=== PATIENT | male | born 1930 | race African-American/Black ===

== ENCOUNTER 2017-07-08 17:18 | Inpatient (IN) | payer OTHER, BC ==
--- NOTE | 2017-07-08 17:18 | EDPHY ---
H & P HPI/ROS: CHIEF COMPLAINT: Rectal bleeding HISTORY OF PRESENT ILLNESS: 86-year-old male with prior pulmonary embolism, on Coumadin, presents with rectal bleeding. Onset of rectal bleeding yesterday. Multiple episodes of dark loose stool yesterday. Associated with 1 episode of hematemesis today and dizziness. No abdominal pain or syncopal episode. He has been taking Aleve daily for a few months. Denies prior GI bleed, abdominal pain, chest pain, abnormal shortness of breath or other worsening symptoms. REVIEW OF SYSTEMS: Aside from elements discussed in the HPI, a comprehensive 10-point review of systems was reviewed and is negative. Past Medical/Surgical History: Pulmonary embolism, right lower extremity DVT, hypertension Social History: Family at bedside, lives in [place], retired. Physical Exam: General Appearance: Alert, pleasant and talkative Eyes: Pupils equal and round, conjunctival pallor ENT, Mouth: Mucous membranes moist Neck: Normal inspection Respiratory: Lungs are clear to auscultation anteriorly Cardiovascular: Regular rate and rhythm Gastrointestinal: Abdomen is soft and non-tender Rectal: Melena present Neurological: A&O, nonfocal exam Skin: Warm and dry Extremities: Nontender, no pedal edema Psychiatric: Mood and affect normal Constitutional: Initial Vital Signs Heart Rate 92 07/08/17 17:18 Respiratory Rate 16 07/08/17 17:18 Blood Pressure 86/55 L 07/08/17 17:18 O2 Sat (%) 88 L 07/08/17 17:18 O2 Delivery Mode Room Air O2 (L/minute) 2 Allergies/Adverse Reactions: No Known Allergies Allergy (Verified 08/19/12 16:14) Home Medications: Medication Instructions Recorded Pravastatin Sodium 20 mg PO DAILY 08/19/12 Quinapril HCl [Accupril 40 MG] 40 mg PO BID 08/19/12 Sildenafil Citrate [Viagra 50 MG 100 mg PO PRN PRN 08/19/12 (*)] Warfarin Sodium [Coumadin 5MG (*)] 5 mg PO DAILY16 #30 tab 08/22/12 Latanoprost 0.005% [Xalatan 0.005% 0 drops EACHEYE HS 07/08/17 (*)] Naproxen Sodium [Aleve 220 MG (*)] 220 mg PO BID 07/08/17 Medical Decision Making - Diagnostics EKG Interpretation: EKG interpreted by me reveals normal sinus rhythm with rate of 89, LVH, prolonged QT interval. Interpretation: Abnormal EKG Imaging: I viewed and interpreted images myself ED Course/Re-evaluation: The patient is an anticoagulated 86 y/o male arriving via EMS who presents with an upper GI bleed. On exam he is hypotensive and he has melena. IV NS 1 liter given. Protonix 80 mg IV given. Stat hemoglobin 8.7, INR 4.6. Vitamin K 10 mg IV and Kcentra IV given. The patient was type and screened. 1842: Reassessed patient and discussed plan for admission 1844: Consulted with hospitalist service, Dr. Peña accepts admission of this patient. 1848: Consulted with Dr. Gasca, gastroenterology, she will consult with this patient upon admission. 1899: Patient's blood pressure is 77/46. IV normal saline infusing. I reassessed the patient; his mental status is at baseline and he is not feeling dizzy. Repeat I-STAT hematocrit 23. Blood bank was called and the blood will not be ready for 30-40 minutes. Given ongoing serious upper GI bleed and hemodynamic instability, 1 unit packed red blood cells ordered, O negative. Dr. Peña was informed. Once crossmatch blood is available, the patient will likely need another unit of crossmatched blood. Repeat BP 80/60, PRBC infusing. Differential Diagnosis: Differential diagnosis includes though is not limited to esophageal varices, peptic ulcer disease, AVM, diverticular bleed Critical Care Time: I spent a total of 45 minutes of critical care time in obtaining history, performing a physical exam, bedside monitoring of interventions, collecting and interpreting tests and discussion with consultants but not including time spent performing procedures. - Data Points Laboratory Results: Laboratory Results 07/08/17 17:50 07/08/17 17:50 07/08/17 18:15 Patient ABO/Rh O POSITIVE Antibody Screen NEGATIVE Crossmatch IS Only See Detail Medications Given: Sodium Chloride (Ns) 1,000 mls @ 100 mls/hr IV CONT CHANG Stop: 01/04/18 21:14 Last Admin: 07/11/17 00:21 Dose: 1,000 mls Pantoprazole Sodium 40 mg/ (Sodium Chloride) 100 mls @ 200 mls/hr IV BID CHANG Stop: 01/05/18 08:59 Last Admin: 07/10/17 20:23 Dose: 100 mls Latanoprost (Xalatan 0.005%) 1 drops EACHEYE HS [facility] Stop: 01/04/18 20:59 Last Admin: 07/10/17 20:23 Dose: 1 drop Tamsulosin HCl (Flomax) 0.4 mg PO DAILY CHANG Stop: 01/06/18 08:59 Last Admin: 07/10/17 10:59 Dose: 0.4 mg Discontinued Medications Brimonidine Tartrate (Alphagan P 0.15%) 1 drops OP DAILY CHANG Stop: 01/05/18 08:59 Last Admin: 07/09/17 12:39 Dose: Not Given Brimonidine Tartrate (Alphagan P 0.15%) 1 drops OP DAILY CHANG Stop: 01/05/18 10:14 Last Admin: 07/09/17 12:39 Dose: Not Given Sodium Chloride (Ns) 1,000 mls @ 0 mls/hr IV EDNOW ONE; Wide Open PRN Reason: Protocol Stop: 07/08/17 17:23 Last Admin: 07/08/17 18:24 Dose: 1,000 mls Pantoprazole Sodium 80 mg/ (Sodium Chloride) 100 mls @ 200 mls/hr IV EDNOW ONE Stop: 07/08/17 18:05 Last Admin: 07/08/17 18:25 Dose: 100 mls Phytonadione 10 mg/ Sodium (Chloride) 51 mls @ 102 mls/hr IV ONCE ONE Stop: 07/08/17 19:05 Last Admin: 07/08/17 18:57 Dose: 51 mls Prothrombin Complex Concent ( Human) 2,400 unit/ IV Miscellaneous Supplies 96 mls @ 0 mls/hr IV ONCE ONE; Per Protocol PRN Reason: Protocol Stop: 07/08/17 19:01 Last Admin: 07/08/17 21:00 Dose: 96 mls Departure - Departure Disposition: [facility] Inpatient Acute Clinical Impression: Upper GI bleed, Over-anticoagulated Condition: Serious Report Scribed for: Toshia Patel Report Scribed by: Harriett Mcgraw Date of Report: 07/08/17 Time of Report: 17:17 Physician Review and Approval Statement: 07/08/17 17:17 Portions of this note were transcribed by a medical collections specialist. I personally performed a history, physical exam, medical decision making, and confirmed accuracy of information the transcribed note.
[2017-07-08] MEDS ORDERED: NS 1,000 ML IV ONE (17:22)
[2017-07-08] MEDS ORDERED: PANTOPRAZOLE SODIUM 80 MG in NS 100 ML IV ONE (17:36)
--- NOTE | 2017-07-08 18:00 | CPEKG ---
Heart Rate: 89 RR Interval: 674 P-R Interval: 164 QRSD Interval: 82 QT Interval: 424 QTC Interval: 516 P [place]: 50 QRS [place]: 30 T Wave [place]: 14 EKG Severity - ABNORMAL ECG - EKG Impression: SINUS RHYTHM EKG Impression: LEFT VENTRICULAR HYPERTROPHY EKG Impression: PROLONGED QT INTERVAL Electronically Signed By: Toshia Patel 08-Jul-2017 21:19:31
[2017-07-08 18:01] LABS: % IMMATURE GRANULYOCYTES 0.4 % (0.0-1.1); ABSOLUTE IMMATURE GRANULOCYTES 0.05 10^3/uL (0.00-0.10); ABSOLUTE NRBC COUNT 0.02 10^3/uL (0-0.01); ADD DIFF? NO; ADD MORPH? NO; ADD SCAN? YES; ATYPICAL LYMPHOCYTE FLAG 0 (0-99); FRAGMENT RBC FLAG 0 (0-99); HEMATOCRIT 26.8 % (40.0-51.0); HEMOGLOBIN 8.6 g/dL (13.7-17.5); LIPEMIA HEMOLYSIS FLAG 80 (0-99); MEAN CELL HEMOGLOBIN 27.7 pg (27.9-34.1); MEAN CELL HEMOGLOBIN CONCENTR. 32.1 g/dL (32.4-36.7); MEAN CELL VOLUME 86.2 fL (81.5-99.8); MEAN PLATELET VOLUME 11.8 fL (8.7-11.7); NRBC-AUTO% 0.2 % (0.0-0.2); PLATELET CLUMPS FLAG 80 (0-99); PLATELET COUNT 97 10^3/uL (150-400); RED BLOOD CELL COUNT 3.11 10^6/uL (4.40-6.38); RED CELL DISTRIBUTION WIDTH 16.4 % (11.5-15.2)
[2017-07-08 18:12] LABS: LEFT SHIFT FLG 180 (0-99)
[2017-07-08 18:14] LABS: INR 4.66 (0.83-1.16); PROTIME(PATIENT) 44.9 SEC (12.0-15.0)
[2017-07-08 18:15] LABS: APTT 44.7 SEC (23.0-38.0)
[2017-07-08 18:32] LABS: SCAN POSITIVE
[2017-07-08] MEDS ORDERED: PHYTONADIONE 10 MG in NS 50 ML IV ONE (18:36)
[2017-07-08 18:38] LABS: MACROCYTES 1+; MICROCYTES 1+
[2017-07-08 18:39] LABS: ECHINOCYTES 2+; PLATELET ESTIMATE DECREASED (ADEQ)
[2017-07-08] MEDS ORDERED: *PHM DO NOT USE-KCENTRA IV 35 UNITS/KG (INR 4-6) PTD MISC SCH (18:45)
[2017-07-08 18:52] LABS: ANION GAP 18 mEq/L (8-16); CALCIUM 8.6 mg/dL (8.5-10.4); CARBON DIOXIDE 13 mEq/l (22-31); CHLORIDE 111 mEq/L (97-110); CREATININE 1.7 mg/dL (0.7-1.3); GLOMERULAR FILTRATION RATE 38; GLUCOSE 119 mg/dL (70-100); POTASSIUM 3.7 mEq/L (3.5-5.2); SODIUM 142 mEq/L (134-144)
[2017-07-08] MEDS ORDERED: HUMAN PROTHROMBIN COMPLX IV ONE (19:00)
[2017-07-08] MEDS ORDERED: ONDANSETRON 4 MG/2 ML VIAL IVP PRN (20:57)
[2017-07-08] MEDS ORDERED: ONDANSETRON DISINTEGRATING 4 MG TAB PO PRN (20:57)
[2017-07-08] MEDS ORDERED: ACETAMINOPHEN 325 MG TAB PO PRN (20:57)
[2017-07-08] MEDS ORDERED: D5W 1/2 NS W/ 20 KCl/L 1,000 ML IV SCH (21:00)
--- NOTE | 2017-07-08 21:21 | GCON ---
[f rep st] CONSULTATION DATE OF CONSULTATION: 07/08/2017 CHIEF COMPLAINT: GI bleed. I am asked to see this patient in consultation by Dr. Peña for the chief complaint of GI bleed. HISTORY OF PRESENT ILLNESS: The patient is an 86-year-old who has been on long-term Coumadin for DVT and PE approximately 3 years ago. He was in his usual state of health until yesterday when he start ed passing dark black stools with some clots. This morning, he had an episode of hematemesis and was brought to the emergency room. He has never had history of GI bleeding or peptic ulcer disease. He does have some epigastric pain. He also admits to having GERD symptoms approximately 2 or 3 times p er week, but no dysphagia. States he does not take any medication for his GERD symptoms. Never had any peptic ulcer disease or bleeding, but had started Naprosyn, which he has been taking daily for th e past 2-3 months. The patient does drink alcohol, a glass or 2 of wine every night. States he has never had issues with liver disease. ALLERGIES: No reported drug allergies. MEDICATIONS: Aleve, taking twice daily; warfarin; Viagra; quinapril; pravastatin. PAST MEDICAL HISTORY: Notable for hypertension, hypercholesterolemia, mitral valve regurg, pulmonary embolism on chronic Coumadin. FAMILY HISTORY: No family history for ulcers or liver disease. SOCIAL HISTORY: Does drink alcohol daily. REVIEW OF SYSTEMS: I have performed a complete review of systems, which was negative except for the pertinent positives and negatives noted in the HPI. PHYSICAL EXAMINATION: VITAL SIGNS: He is afebrile. BP is 86/55, pulse 92. CONSTITUTIONAL: He is alert, in no apparent distress. EYES: No scleral icterus. HENT: No oral lesions. CV: Regular ra te and rhythm. CHEST: Clear to auscultation. ABDOMEN: Positive bowel sounds. Soft, nontender. N o ascites detected. No hepatosplenomegaly. There is some tenderness noted to deep palpation in the epigastric area. NEUROLOGIC: Grossly nonfocal. SKIN: No skin rashes. LABORATORY DATA: Notable for a BUN of 67, with creatinine 1.2. Hematocrit is 26.8, with hemoglobin 8.6, platelets 97, white count 11. Previous hematocrit was normal. Pro time is elevated at 41.9, wi th an INR of 4.66. ASSESSMENT: Acute upper gastrointestinal bleed manifested with hematemesis, melena, and elevated BUN . This is complicated by Coumadin use with high INR. Differential diagnosis would include nonsteroi zofia antiinflammatory drug-induced ulcer, which is most likely, but also consider esophagitis or Mallo ry-Unger tear. Consider arteriovenous malformation, etc. The patient would benefit from upper endos copy; however at this point, he will need resuscitation and correction of his coagulation before uppe r endoscopy can be performed. I did discuss this with the patient. Overall, he would be high risk f or endoscopy because of his age and anticoagulation, but I think that the benefits would outweigh the risks once his anticoagulation is corrected and could be done safely with careful sedation. PLAN: 1. Agree with vitamin K, and prothrombin complex to correct his coagulopathy, and can recheck his pr o time. 2. Would recommend transfusion with packed red cells and then check H and H after, and then monitor serial H and H. Recommend PPI IV and upper endoscopy once stabilized and coagulopathy is corrected. Will monitor. Thank you for this consult. Sincerely, /[id number]/MODL
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
[2017-07-08 22:19] LABS: HEMATOCRIT 25.6 % (40.0-51.0); HEMOGLOBIN 8.3 g/dL (13.7-17.5)
[2017-07-08] MEDS: LATANOPROST 0.005% 2.5 ML OPHT DROPS EACHEYE SCH (22:42)
[2017-07-09 05:27] LABS: HEMATOCRIT 22.6 % (40.0-51.0); HEMOGLOBIN 7.7 g/dL (13.7-17.5)
[2017-07-09 05:35] LABS: ALANINE AMINOTRANSFERASE 27 IU/L (21-72); ALBUMIN 2.4 g/dL (3.5-5.0); ALKALINE PHOSPHATASE 40 IU/L (38-126); ANION GAP 7 mEq/L (8-16); ASPARTATE AMINOTRANSFERASE 31 IU/L (17-59); BILIRUBIN,TOTAL 1.4 mg/dL (0.1-1.4); CALCIUM 8.2 mg/dL (8.5-10.4); CARBON DIOXIDE 21 mEq/l (22-31); CHLORIDE 112 mEq/L (97-110); CREATININE 1.9 mg/dL (0.7-1.3); GLOMERULAR FILTRATION RATE 34; GLUCOSE 99 mg/dL (70-100); SODIUM 140 mEq/L (134-144); TOTAL PROTEIN 4.7 g/dL (6.3-8.2)
[2017-07-09 05:36] LABS: INR 1.17 (0.83-1.16); PROTIME(PATIENT) 14.9 SEC (12.0-15.0)
--- NOTE | 2017-07-09 08:38 | PDANEPAE ---
ANE History of Present Illness 86 year old male on Coumadin, chronic alcohol consumption, and recent use of Aleve presented with an upper GI bleed. ANE Past Medical History - Cardiovascular History Hx Hypertension: Yes Cardiovascular History Comment: hypercholesterolemia. MV regurgitation. h/o DVT/PE 3 years ago, on chronic Coumadin since that time - Pulmonary History Hx Recent Upper Respiratory Infection: No Hx Oxygen in Use at Home: No Hx Sleep Apnea: No Pulmonary History Comment: Normally active around the house and outside. Requiring O2 during this admission, probably secondary to anemia and some underlying pulmonary disease. - Endocrine History Hx Diabetes: No - Renal History Hx Renal Disorders: Yes Renal History Comment: Baseline Cr 1.3-1.4. Acutely has elevated Cr, perhaps partially due to hypovolemia. - Liver History Hepatic History Comment: Low albumin probably secondary to chronic EtOh use/ poor nutrition. - GI History GERD: moderate Gastrointestinal History Comment: Reports GERD symtoms 2-3 x/week. - Other Health History Other Health History: Chronic EtOH use. Pt reports 2 glasses of wine nightly, says he drinks beer in the afternoon in addition to the wine at night. ANE Review of Systems Review of Systems: - Systems Respiratory: Reports: cough (chronic dry cough), other (hypoxemia) Gastrointestinal: Reports: black stools Hematologic/Lymphatic: Reports: anemia ANE Patient History - Allergies Allergies/Adverse Reactions: No Known Allergies Allergy (Verified 08/19/12 16:14) - Home Medications Home medications: home medication list seen and reviewed Home Medications: Pravastatin Sodium 20 mg PO DAILY 08/19/12 [Last Taken 07/08/17] Quinapril HCl [Accupril 40 MG] 40 mg PO BID 08/19/12 [Last Taken 07/08/17] Sildenafil Citrate [Viagra 50 MG (*)] 100 mg PO PRN PRN 08/19/12 [Last Taken Unknown] Brimonidine 0.15% 1 drop OP 07/08/17 [Last Taken Unknown] Latanoprost 0.005% [Xalatan 0.005% (*)] 0 drops EACHEYE 07/08/17 [Last Taken Unknown] Naproxen Sodium [Aleve 220 MG (*)] 220 mg PO BID 07/08/17 [Last Taken 07/08/17] - NPO status NPO Status: no food or drink >8 hours - Anes Hx Anes Hx: no prior problems - Smoking Hx Smoking Status: Former smoker Marijuana use: No - Alcohol Use Alcohol Use: Heavy (6+ drinks/day per (pt denies, only admits to 2 daily)) - Family Anes Hx Family Anes Hx: none ANE Labs/Vital Signs - Labs Result Diagrams: 07/09/17 05:05 07/09/17 05:05 - Vital Signs Blood Pressure: 92/60 Heart Rate: 87 Respiratory Rate: 17 O2 Sat (%): 100 Height: 177.8 cm Weight: 70.7 kg ANE Physical Exam - Airway Neck exam: FROM Mallampati Score: Class 3 Mouth exam: dentures - Pulmonary Pulmonary: no respiratory distress - Cardiovascular Cardiovascular: regular rate and rhythym - ASA Status ASA Status: III ANE Anesthesia Plan Anesthesia Plan: GA with mask Total IV Anesthesia: Yes
[2017-07-09] MEDS ORDERED: fentaNYL 100 MCG/2 ML INJ ONE (08:57)
[2017-07-09] MEDS ORDERED: LIDOCAINE 2% 5 ML SDV ONE (08:57)
[2017-07-09] MEDS ORDERED: PROPOFOL 200 MG/20 ML VIAL ONE ×2 (08:57)
[2017-07-09] MEDS ORDERED: BRIMONIDINE 0.15% 5 ML OPHT.BTL OP SCH ×3 (09:00→21:00)
[2017-07-09] MEDS ORDERED: PHENYLEPHRINE HCL 100 MCG/ML SYR ONE ×2 (09:38)
--- NOTE | 2017-07-09 09:47 | GIREPORT ---
[facility] Surgical Services - Endoscopy Department Patient Name: Kavin Lew Procedure Date: 07/09/2017 8:44 AM Patient Type: Inpatient Attending / ER Physician: Linda Gasca MD Procedure: Upper GI endoscopy Indications: Melena, Suspected upper gastrointestinal bleeding Providers: Linda Gasca MD Medicines: Monitored Anesthesia Care Complications: No immediate complications. Description of Procedure: After obtaining informed consent, the endoscope was passed under direct vision. Throughout the procedure, the patient's blood pressure, pulse, and oxygen saturations were monitored continuously. The Endoscope was intro duced through the mouth, and advanced to the second part of duodenum. [facility] was accomplished without difficulty. The patient tolerated th e procedure well. Findings: LA Grade B (one or more mucosal breaks greater than 5 mm, not extending between the tops of two mucosal folds) esophagitis with no bleeding was found in the lower third of the esophagus. A single localized, medium non-bleeding erosion was found at the pylorus. There were no stigmata of recent bleeding. The examined duodenum was normal. A medium non-bleeding Mei-Unger tear with stigmata of recent bleeding was found with large v iss vessel. To prevent bleeding post-intervention, three hemostatic clips were successfully placed. There was no bleeding at the end of the procedure. Erythematous mucosa was found in the gastric body laceration occured when rertoflexion to place 3 clip at [facility]. There was nobleeding but to repair the defect, the tissue edges were approximated and one hemostatic clip was successfully placed. Closure of the defect was successf ul. There was no bleeding at the end of the procedure. Estimated Blood Loss: Estimated blood loss was minimal. Post Op Diagnosis: - LA Grade B reflux esophagitis. - Non-bleeding erosive gastropathy. - Normal examined duodenum. - Mei-Unger tear. Clips were placed. - Erythematous mucosa in the gastric body with laceration. Clip was placed. - No specimens collected. Recommendation: - NPO. - Continue present medications. - Return patient to ICU for ongoing care. - Montior closely for rebleeding given size of vissible vessel. If rebleeding recommend IR for embolization. - No anticoagulation for 3 days. - Continue PPI IV. Attending Participation: I personally performed the entire procedure. Linda Gasca MD Linda Gasca MD 07/09/2017 9:46:53 AM Number of Addenda: 0 Note Initiated On: 07/09/2017 8:44 AM Total Procedure Duration Time 0 hours 10 minutes 41 seconds [email or web address]
[2017-07-09] MEDS ORDERED: NALOXONE HCL 0.4 MG/ML INJ IVP PRN (12:31)
[2017-07-09] MEDS ORDERED: ALBUTEROL 3 ML DEYVIAL IH PRN (12:31)
[2017-07-09] MEDS ORDERED: LR 500 ML IV PRN (12:31)
--- NOTE | 2017-07-09 12:34 | POSTANESTH ---
Post Anesthetic Evaluation Cardiovascular Status: Normal, Stable Respiratory Status: Normal, Stable Level of Consciousness/Mental Status: Moderately Sleepy Pain Control: Adequate, Prn Tx Ordered Nausea/Vomiting Control: Adequate, Prn Tx Ordered Complications Possibly Related to Anesthesia: None Noted
[2017-07-09] MEDS: PANTOPRAZOLE SODIUM 40 MG in NS 100 ML IV SCH ×3 (12:38→21:46)
[2017-07-09 13:06] LABS: COLOR YELLOW; LEUKOCYTE ESTERASE,URINE NEGATIVE (NEGATIVE); NITRITE,URINE NEGATIVE (NEGATIVE)
--- NOTE | 2017-07-09 14:13 | ASMTCMCOM ---
CM Note CM Note Notes: Patient case reviewed in rounds and discussion with RN. Patient suffered GI bleed due to drug interactions from medications. Per discussion, home health RN indicated to help manage medications. Spoke with patient who has no previous HHC but he is agreeable to HHC visits. Referral to [facility]. Patient to pr home when medicallly stable. C/M to follow. Date Signed: 07/09/2017 02:12 PM Electronically Signed By:Rani Montano RN
[2017-07-09 14:49] LABS: HEMATOCRIT 22.3 % (40.0-51.0); HEMOGLOBIN 7.3 g/dL (13.7-17.5)
--- NOTE | 2017-07-09 17:23 | HOSPPROG ---
Hospitalist Progress Note Assessment/Plan: * UGIB - Mei Unger tear with visible vessel s/p clip -keep NPO/ICU due to risk of re-bleed -IV PPI -if rebleeds - needs IR for embolization -DC NSAID * ABL anemia -stable but low - continue to follow closely * Urinary retention - > 700 cc retained in bladder -bryant, flomax * h/o PE -warfarin reversed -per GI - okay to restart anti-coag in 3 days * Etoh use - watch for withdrawal * Hypotension -continue IVF -hold quinapril * Acute on chronic renal failure (baseline 1.3) -continue IVF and follow * Thrombocytopenia - follow Subjective: no new complaints. Objective: Vital Signs Temp Pulse Resp BP Pulse Ox 36.9 C 94 16 97/67 L 99 07/09/17 09:00 07/09/17 16:00 07/09/17 16:00 07/09/17 16:00 07/09/17 16:00 Laboratory Results 07/09/17 14:00 07/09/17 05:05 07/08/17 07/09/17 07/10/17 05:59 05:59 05:59 Intake Total 2090 Output Total 500 775 Balance 1590 -775 PT 14.9 SEC (12.0-15.0) D 07/09/17 05:05 INR 1.17 (0.83-1.16) H 07/09/17 05:05 d/w Dr. Michel - regarding plan of care tele - NSR - Physical Exam Constitutional: no apparent distress, appears nourished, not in pain Cardiovascular: regular rate and rhythym, no murmur, rub, or gallop Respiratory: no respiratory distress, no rales or rhonchi, clear to auscultation Gastrointestinal: normoactive bowel sounds, soft, non-tender abdomen, no palpable masses Skin: no rashes or abrasions, no fluctuance, no induration Neurologic: AAOx3, sensation intact bilaterally Psychiatric: interacting appropriately, not anxious, not encephalopathic, thought process linear ICD10 Worksheet Patient Problems: Problems Problem Status Onset Over-anticoagulated Acute Upper GI bleed Acute
[2017-07-09 17:43] LABS: HEMATOCRIT 24.6 % (40.0-51.0); HEMOGLOBIN 7.8 g/dL (13.7-17.5)
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
[2017-07-09] MEDS: LATANOPROST 0.005% 2.5 ML OPHT DROPS EACHEYE SCH (21:44)
[2017-07-09] MEDS: NS 1,000 ML IV SCH (21:46)
[2017-07-10 00:56] LABS: HEMATOCRIT 20.8 % (40.0-51.0)
[2017-07-10 00:57] LABS: HEMOGLOBIN 6.9 g/dL (13.7-17.5)
[2017-07-10 06:35] LABS: % IMMATURE GRANULYOCYTES 0.2 % (0.0-1.1); ABSOLUTE IMMATURE GRANULOCYTES 0.01 10^3/uL (0.00-0.10); ADD DIFF? NO; ADD MORPH? NO; ADD SCAN? NO; ATYPICAL LYMPHOCYTE FLAG 10 (0-99); FRAGMENT RBC FLAG 0 (0-99); HEMATOCRIT 23.3 % (40.0-51.0); HEMOGLOBIN 7.7 g/dL (13.7-17.5); LEFT SHIFT FLG 60 (0-99); LIPEMIA HEMOLYSIS FLAG 80 (0-99); MEAN CELL HEMOGLOBIN 28.8 pg (27.9-34.1); MEAN CELL VOLUME 87.3 fL (81.5-99.8); MEAN PLATELET VOLUME 11.1 fL (8.7-11.7); PLATELET CLUMPS FLAG 20 (0-99); PLATELET COUNT 74 10^3/uL (150-400); RED BLOOD CELL COUNT 2.67 10^6/uL (4.40-6.38); RED CELL DISTRIBUTION WIDTH 16.3 % (11.5-15.2)
[2017-07-10 07:18] LABS: ANION GAP 5 mEq/L (8-16); CALCIUM 8.6 mg/dL (8.5-10.4); CARBON DIOXIDE 22 mEq/l (22-31); CHLORIDE 114 mEq/L (97-110); CREATININE 1.4 mg/dL (0.7-1.3); GLOMERULAR FILTRATION RATE 48; GLUCOSE 91 mg/dL (70-100); POTASSIUM 3.7 mEq/L (3.5-5.2); SODIUM 141 mEq/L (134-144)
[2017-07-10] MEDS: TAMSULOSIN HCL 0.4 MG CAP PO SCH (10:59)
--- NOTE | 2017-07-10 12:21 | SOAPPROG ---
DELFINA Progress Note Assessment/Plan: Assessment: Significant GIB on anticoagulation with MWT with VV treated with Clips. Overall has done well but just now with some tachycardia with HR 100s. Plan: Check H+H now, if significantly lower and remains tachycardic consider IR for embolization. If H+H stable or mildly lower than monitor H+H and transfuse if needed. Would prefer to do supportive care if stable as likely any mild bleeding will stop with time. Hold anticoagulation for now. Subjective: CC GIB Pt with no hematemesis but some nausea this AM Objective: Vital Signs Temp Pulse Resp BP Pulse Ox 37.0 C 103 H 21 H 118/62 97 07/10/17 11:00 07/10/17 12:00 07/10/17 12:00 07/10/17 12:00 07/10/17 12:00 Laboratory Results 07/10/17 06:00 07/10/17 06:00 07/09/17 07/10/17 07/11/17 05:59 05:59 05:59 Intake Total 2090 2587 Output Total 500 2500 450 Balance 1590 87 -450 PT 14.9 SEC (12.0-15.0) D 07/09/17 05:05 INR 1.17 (0.83-1.16) H 07/09/17 05:05 Physical Exam - Physical Exam General Appearance: no apparent distress Respiratory: lungs clear Cardiac/Chest: tachycardia Abdomen: non-tender, soft ICD10 Worksheet Patient Problems: Problems Problem Status Onset Over-anticoagulated Acute Upper GI bleed Acute
[2017-07-10 13:02] LABS: HEMATOCRIT 27.6 % (40.0-51.0)
--- NOTE | 2017-07-10 13:51 | PDINTPN ---
Professor Of Surgery Progress Note Assessment/Plan: Assessment/plan: 86 M previously on coumadin for afib and remote PE admitted 07/08/17 with acute GIB. EGD revealed lorna laughlin tear and gastritis, possibly related to NSAID use. MW tear required clips to control. * UGIB- currently stable, though his H/H continues to trickle overnight and he was transfused RBCs. BP stable. Continued observation. * Afib- will need to discuss when to resume anticoagulation for CVA risk * BPH- likely thoiugh a bryant is currently in place. Remains NPO but will need medication when out. Subjective: stable overnight Objective: Vital Signs Temp Pulse Resp BP Pulse Ox 37.0 C 104 H 22 H 138/70 H 95 07/10/17 11:00 07/10/17 13:00 07/10/17 13:00 07/10/17 13:00 07/10/17 13:00 Laboratory Results 07/10/17 12:59 07/10/17 06:00 07/09/17 07/10/17 07/11/17 05:59 05:59 05:59 Intake Total 2090 2587 Output Total 500 2500 450 Balance 1590 87 -450 PT 14.9 SEC (12.0-15.0) D 07/09/17 05:05 INR 1.17 (0.83-1.16) H 07/09/17 05:05 Physical Exam - Physical Exam General Appearance: WD/WN, alert, no apparent distress EENT: PERRL/EOMI Neck: supple Respiratory: lungs clear, normal breath sounds, No respiratory distress Cardiac/Chest: irregularly irregular, No edema Abdomen: non-tender, soft, No distended Skin: normal color, warm/dry Lymphatic: no adenopathy Extremities: No pedal edema Neuro/Psych: alert, normal mood/affect, oriented x 3 ICD10 Worksheet Patient Problems: Problems Problem Status Onset Over-anticoagulated Acute Upper GI bleed Acute
--- NOTE | 2017-07-10 15:29 | HOSPPROG ---
Hospitalist Progress Note Assessment/Plan: * UGIB - Mei Unger tear with visible vessel s/p clip -keep ICU due to risk of re-bleed -IV PPI -if rebleeds - needs IR for embolization -DC NSAID * ABL anemia -stable - continue to follow closely * Urinary retention - > 700 cc retained in bladder -bryant, flomax * h/o PE -warfarin reversed -per GI - okay to restart anti-coag in 3 days * Etoh use - watch for withdrawal * Hypotension -continue IVF -hold quinapril * Acute on chronic renal failure (baseline 1.3) -continue IVF and follow * Thrombocytopenia - follow Subjective: Some old blood this am Objective: Vital Signs Temp Pulse Resp BP Pulse Ox 37.0 C 106 H 22 H 107/68 98 07/10/17 11:00 07/10/17 14:00 07/10/17 14:00 07/10/17 14:00 07/10/17 14:00 Laboratory Results 07/10/17 12:59 07/10/17 06:00 07/09/17 07/10/17 07/11/17 05:59 05:59 05:59 Intake Total 2090 2587 Output Total 500 2500 450 Balance 1590 87 -450 PT 14.9 SEC (12.0-15.0) D 07/09/17 05:05 INR 1.17 (0.83-1.16) H 07/09/17 05:05 case d/w Dr. Michel and Dr. Gasca regarding plan of care - keep ICU on IV Protonix until we are sure no more bleeding. New tachycardia concerning tele - sinus tachy - Physical Exam Constitutional: no apparent distress, appears nourished, not in pain Cardiovascular: regular rate and rhythym, no murmur, rub, or gallop Respiratory: no respiratory distress, no rales or rhonchi, clear to auscultation Gastrointestinal: normoactive bowel sounds, soft, non-tender abdomen, no palpable masses Skin: no rashes or abrasions, no fluctuance, no induration Neurologic: AAOx3, sensation intact bilaterally Psychiatric: interacting appropriately, not anxious, not encephalopathic, thought process linear ICD10 Worksheet Patient Problems: Problems Problem Status Onset Over-anticoagulated Acute Upper GI bleed Acute
[2017-07-10 18:17] LABS: HEMATOCRIT 25.6 % (40.0-51.0); HEMOGLOBIN 8.4 g/dL (13.7-17.5)
[2017-07-10] MEDS: LATANOPROST 0.005% 2.5 ML OPHT DROPS EACHEYE SCH (20:23)
[2017-07-10] MEDS: PANTOPRAZOLE SODIUM 40 MG in NS 100 ML IV SCH (20:23)
[2017-07-11] MEDS: NS 1,000 ML IV SCH (00:21)
[2017-07-11 00:38] LABS: HEMATOCRIT 22.5 % (40.0-51.0); HEMOGLOBIN 7.5 g/dL (13.7-17.5)
[2017-07-11 05:28] LABS: % IMMATURE GRANULYOCYTES 0.9 % (0.0-1.1); ABSOLUTE IMMATURE GRANULOCYTES 0.05 10^3/uL (0.00-0.10); ADD DIFF? NO; ADD MORPH? NO; ADD SCAN? NO; ATYPICAL LYMPHOCYTE FLAG 10 (0-99); FRAGMENT RBC FLAG 0 (0-99); HEMATOCRIT 24.2 % (40.0-51.0); HEMOGLOBIN 8.2 g/dL (13.7-17.5); LEFT SHIFT FLG 20 (0-99); LIPEMIA HEMOLYSIS FLAG 90 (0-99); MEAN CELL HEMOGLOBIN 29.1 pg (27.9-34.1); MEAN CELL HEMOGLOBIN CONCENTR. 33.9 g/dL (32.4-36.7); MEAN CELL VOLUME 85.8 fL (81.5-99.8); MEAN PLATELET VOLUME 10.5 fL (8.7-11.7); PLATELET CLUMPS FLAG 0 (0-99); PLATELET COUNT 80 10^3/uL (150-400); RED BLOOD CELL COUNT 2.82 10^6/uL (4.40-6.38); RED CELL DISTRIBUTION WIDTH 15.6 % (11.5-15.2)
[2017-07-11 06:13] LABS: ANION GAP 6 mEq/L (8-16); CALCIUM 8.1 mg/dL (8.5-10.4); CARBON DIOXIDE 21 mEq/l (22-31); CHLORIDE 112 mEq/L (97-110); CREATININE 1.1 mg/dL (0.7-1.3); GLOMERULAR FILTRATION RATE > 60; GLUCOSE 115 mg/dL (70-100); POTASSIUM 3.4 mEq/L (3.5-5.2); SODIUM 139 mEq/L (134-144)
[2017-07-11] MEDS: PANTOPRAZOLE SODIUM 40 MG in NS 100 ML IV SCH (09:45)
--- NOTE | 2017-07-11 11:10 | HOSPPROG ---
Hospitalist Progress Note Assessment/Plan: # UGIB - d/t Mei-Unger tear s/p clip; INR was supratherapeutic - cont ICU care - IR embolization if rebleeds - cont clears - IV PPI, dc NSAIDs # ABLA s/p 2U PRBC # thrombocytopenia - stable # hx PE 3 years ago - cont to hold AC, consider restarting AC in a few days # AGNIESZKA on CKD - resolved # htn - hold quinapril # urinary retention - flomax - dc bryant today # etOH use - no signs of w/d currently Subjective: no emesis/BM overnight; no abd pain Objective: Vital Signs Temp Pulse Resp BP Pulse Ox 37 C 85 16 145/85 H 95 07/11/17 04:00 07/11/17 06:00 07/11/17 06:00 07/11/17 06:00 07/11/17 06:00 Laboratory Results 07/11/17 05:20 07/11/17 05:20 07/10/17 07/11/17 07/12/17 05:59 05:59 05:59 Intake Total 2587 4796 Output Total 2500 1375 Balance 87 3421 PT 14.9 SEC (12.0-15.0) D 07/09/17 05:05 INR 1.17 (0.83-1.16) H 07/09/17 05:05 high risk - Physical Exam Constitutional: no apparent distress, appears nourished Cardiovascular: no murmur, rub, or gallop, tachycardia Respiratory: no respiratory distress, no rales or rhonchi, clear to auscultation Gastrointestinal: normoactive bowel sounds, soft, non-tender abdomen, no palpable masses ICD10 Worksheet Patient Problems: Problems Problem Status Onset Over-anticoagulated Acute Upper GI bleed Acute
[2017-07-11] MEDS ORDERED: POTASSIUM CL 20 MEQ TAB PO ONE (11:30)
[2017-07-11] MEDS: TAMSULOSIN HCL 0.4 MG CAP PO SCH (11:43)
[2017-07-11 12:05] LABS: HEMATOCRIT 28.7 % (40.0-51.0); HEMOGLOBIN 9.5 g/dL (13.7-17.5)
--- NOTE | 2017-07-11 13:41 | PDINTPN ---
Division Operations Specialist Progress Note Assessment/Plan: Assessment/plan: 86 M previously on coumadin for afib and remote PE admitted 07/08/17 with acute GIB. EGD revealed lorna laughlin tear and gastritis, possibly related to NSAID use. MW tear required clips to control. * UGIB- currently stable, though his H/H continues to trickle overnight and he was transfused RBCs again last PM. BP stable. Continued observation and mostly NPO. * Afib- will need to discuss when to resume anticoagulation for CVA risk * BPH- likely though a bryant is currently in place. Remains NPO but will need medication when out. Subjective: feels well and denies N/V/diarrhea. Stool still dark Objective: Vital Signs Temp Pulse Resp BP Pulse Ox 36.9 C 96 20 151/85 H 97 07/11/17 12:00 07/11/17 12:00 07/11/17 12:00 07/11/17 12:00 07/11/17 12:00 Laboratory Results 07/11/17 11:49 07/11/17 05:20 07/10/17 07/11/17 07/12/17 05:59 05:59 05:59 Intake Total 2587 4796 Output Total 2500 1375 Balance 87 3421 PT 14.9 SEC (12.0-15.0) D 07/09/17 05:05 INR 1.17 (0.83-1.16) H 07/09/17 05:05 Physical Exam - Physical Exam General Appearance: alert, no apparent distress EENT: PERRL/EOMI Neck: supple Respiratory: lungs clear, normal breath sounds, No respiratory distress Cardiac/Chest: regular rate, rhythm, No edema Abdomen: normal bowel sounds, non-tender, soft, No distended Skin: normal color, warm/dry Lymphatic: no adenopathy Extremities: No pedal edema Neuro/Psych: alert, normal mood/affect, oriented x 3 ICD10 Worksheet Patient Problems: Problems Problem Status Onset Over-anticoagulated Acute Upper GI bleed Acute
--- NOTE | 2017-07-11 13:45 | SOAPPROG ---
SOSHAHIDA Progress Note Assessment/Plan: Assessment: Significant GIB on anticoagulation with MWT with VV treated with Clips. Fluctuations in H+H may be equilibration but better today. Suspect no rebleeding Plan: OK to advance diet PO PPI Would prefer to hold anticoagulation for now given high risk lesion fro rebleeding. If he does rebleed recommend IR If stable consider d/c tomorrow or next day 07/11/17 13:43 Subjective: CC UGIB Pt c/o cough but no n/v Objective: Vital Signs Temp Pulse Resp BP Pulse Ox 36.9 C 96 20 151/85 H 97 07/11/17 12:00 07/11/17 12:00 07/11/17 12:00 07/11/17 12:00 07/11/17 12:00 Laboratory Results 07/11/17 11:49 07/11/17 05:20 07/10/17 07/11/17 07/12/17 05:59 05:59 05:59 Intake Total 2587 4796 Output Total 2500 1375 Balance 87 3421 PT 14.9 SEC (12.0-15.0) D 07/09/17 05:05 INR 1.17 (0.83-1.16) H 07/09/17 05:05 Physical Exam - Physical Exam General Appearance: no apparent distress Respiratory: chest non-tender Cardiac/Chest: regular rate, rhythm Abdomen: non-tender, soft ICD10 Worksheet Patient Problems: Problems Problem Status Onset Over-anticoagulated Acute Upper GI bleed Acute
[2017-07-11] MEDS: PANTOPRAZOLE SODIUM 40 MG TAB PO SCH (20:12)
[2017-07-11] MEDS: LATANOPROST 0.005% 2.5 ML OPHT DROPS EACHEYE SCH (20:43)
[2017-07-12 05:59] LABS: % IMMATURE GRANULYOCYTES 0.5 % (0.0-1.1); ABSOLUTE IMMATURE GRANULOCYTES 0.04 10^3/uL (0.00-0.10); ADD DIFF? NO; ATYPICAL LYMPHOCYTE FLAG 10 (0-99); FRAGMENT RBC FLAG 0 (0-99); HEMATOCRIT 27.3 % (40.0-51.0); HEMOGLOBIN 9.2 g/dL (13.7-17.5); LEFT SHIFT FLG 0 (0-99); MEAN CELL HEMOGLOBIN 28.6 pg (27.9-34.1); MEAN CELL HEMOGLOBIN CONCENTR. 33.7 g/dL (32.4-36.7); MEAN CELL VOLUME 84.8 fL (81.5-99.8); MEAN PLATELET VOLUME 10.9 fL (8.7-11.7); PLATELET COUNT 103 10^3/uL (150-400); RED BLOOD CELL COUNT 3.22 10^6/uL (4.40-6.38); RED CELL DISTRIBUTION WIDTH 15.5 % (11.5-15.2)
[2017-07-12 06:00] LABS: ADD MORPH? NO; ADD SCAN? NO; LIPEMIA HEMOLYSIS FLAG 80 (0-99); PLATELET CLUMPS FLAG 0 (0-99)
[2017-07-12 06:07] LABS: ANION GAP 8 mEq/L (8-16); CARBON DIOXIDE 22 mEq/l (22-31); CHLORIDE 107 mEq/L (97-110); CREATININE 1.1 mg/dL (0.7-1.3); GLOMERULAR FILTRATION RATE > 60; GLUCOSE 105 mg/dL (70-100); POTASSIUM 3.7 mEq/L (3.5-5.2); SODIUM 137 mEq/L (134-144)
[2017-07-12] MEDS: PANTOPRAZOLE SODIUM 40 MG TAB PO SCH ×2 (08:45→20:46)
[2017-07-12] MEDS: TAMSULOSIN HCL 0.4 MG CAP PO SCH (08:45)
--- NOTE | 2017-07-12 09:45 | HOSPPROG ---
Hospitalist Progress Note Assessment/Plan: # UGIB - d/t Mei-Unger tear s/p clip; INR was supratherapeutic - IR embolization if rebleeds - advancing diet today - PO PPI, dc NSAIDs - will attempt to d/w PCP regarding lifelong AC # cough - chec CXR # tachycardia - ddx includes infection, PE, anemia, etOH w/d - will check CXR for now, follow closely # ABLA s/p 2U PRBC # thrombocytopenia - stable # hx PE 3 years ago - cont to hold AC - try to d/w PCP why he is on lifelong AC # AGNIESZKA on CKD - resolved # htn/hypotension - hold quinapril - may need to restart today # urinary retention - bryant dc'd, on flomax # etOH use - tachy but not tremulous Subjective: still very weak; no melena, emesis Objective: Vital Signs Temp Pulse Resp BP Pulse Ox 36.6 C 91 19 151/88 H 96 07/12/17 07:48 07/12/17 07:48 07/12/17 07:48 07/12/17 07:48 07/12/17 07:48 Laboratory Results 07/12/17 05:36 07/12/17 05:36 07/11/17 07/12/17 07/13/17 05:59 05:59 05:59 Intake Total 4796 600 100 Output Total 1375 1125 Balance 3421 -525 100 PT 14.9 SEC (12.0-15.0) D 07/09/17 05:05 INR 1.17 (0.83-1.16) H 07/09/17 05:05 high risk given age and diagnosis - Physical Exam Constitutional: not in pain Cardiovascular: no murmur, rub, or gallop, tachycardia Respiratory: no respiratory distress, no rales or rhonchi, clear to auscultation Gastrointestinal: normoactive bowel sounds, soft, non-tender abdomen, no palpable masses ICD10 Worksheet Patient Problems: Problems Problem Status Onset Upper GI bleed Acute Over-anticoagulated Acute
--- NOTE | 2017-07-12 09:51 | SOAPPROG ---
SOAP Progress Note Assessment/Plan: Assessment: UBGI from [facility] no rebleeding with stable H+H for 24 hours. Need to clarify if pt requires record pressman anticoagulation. Cough today with increase HR Plan: OK to advance diet PO PPI Would prefer to hold anticoagulation for now given high risk lesion fro rebleeding. If he does rebleed recommend IR Discussed with hospitalist who will order CRX today I have a call out to PCP regarding anticoagulation Subjective: CC UGIB No n/v today pt c/o cough feels SOB Objective: Vital Signs Temp Pulse Resp BP Pulse Ox 36.6 C 91 19 151/88 H 96 07/12/17 07:48 07/12/17 07:48 07/12/17 07:48 07/12/17 07:48 07/12/17 07:48 Laboratory Results 07/12/17 05:36 07/12/17 05:36 07/11/17 07/12/17 07/13/17 05:59 05:59 05:59 Intake Total 4796 600 100 Output Total 1375 1125 Balance 3421 -525 100 PT 14.9 SEC (12.0-15.0) D 07/09/17 05:05 INR 1.17 (0.83-1.16) H 07/09/17 05:05 Physical Exam - Physical Exam General Appearance: mild distress Respiratory: decreased breath sounds Cardiac/Chest: regular rate, rhythm Abdomen: non-tender, soft ICD10 Worksheet Patient Problems: Problems Problem Status Onset Over-anticoagulated Acute Upper GI bleed Acute
[2017-07-12] MEDS ORDERED: GUAIFENESIN/DM 10 ML UDCUP PO PRN (11:19)
--- NOTE | 2017-07-12 13:35 | ASMTCMCOM ---
CM Note CM Note Notes: Per RN, patient will likely discharge tomorrow or the next day. D/C plan is home with [facility] and the support of family and friends. Called [facility] and informed them of upcoming discharge. CM available for any other needs. Date Signed: 07/12/2017 01:34 PM Electronically Signed By:Alejandra Ahn RN
--- NOTE | 2017-07-12 14:14 | PDINTPN ---
Agricultural Research Technician Progress Note Assessment/Plan: Assessment/plan: 86 M previously on coumadin for afib and remote PE admitted 07/08/17 with acute GIB. EGD revealed lorna laughlin tear and gastritis, possibly related to NSAID use. MW tear required clips to control. * Cough- likely GI source. CXR unremarkable to me. OK to start cough suppressant and should resolve spontaneously. Already on PPI. No e/o RAD, sinus disease. * UGIB- 2/2 MW tear after N/V related to gastritis in setting of chronic NSAIDs and daily wine. Currently stable without evidence of continued bleeding, though HR a bit fast still. Advance diet per GI recommendations. * Afib- will need to discuss when to resume anticoagulation for CVA risk * BPH- started flomax but still with frequency. May be too early for effect. Continue to observe. 07/12/17 14:11 Subjective: Stable overnight. C/O dry cough since admission/EGD. No BM since last PM Objective: Vital Signs Temp Pulse Resp BP Pulse Ox 36.1 C 100 25 H 127/91 H 100 07/12/17 12:00 07/12/17 12:00 07/12/17 12:00 07/12/17 12:00 07/12/17 12:00 Laboratory Results 07/12/17 05:36 07/12/17 05:36 07/11/17 07/12/17 07/13/17 05:59 05:59 05:59 Intake Total 4796 600 100 Output Total 1375 1125 Balance 3421 -525 100 PT 14.9 SEC (12.0-15.0) D 07/09/17 05:05 INR 1.17 (0.83-1.16) H 07/09/17 05:05 Physical Exam - Physical Exam General Appearance: WD/WN, alert, no apparent distress EENT: PERRL/EOMI Neck: supple Respiratory: lungs clear, normal breath sounds, No respiratory distress Cardiac/Chest: irregularly irregular, No edema Abdomen: normal bowel sounds, non-tender, soft, No distended Skin: normal color, warm/dry Lymphatic: no adenopathy Extremities: No pedal edema Neuro/Psych: alert, normal mood/affect, oriented x 3 ICD10 Worksheet Patient Problems: Problems Problem Status Onset Over-anticoagulated Acute Upper GI bleed Acute
[2017-07-12] MEDS: LATANOPROST 0.005% 2.5 ML OPHT DROPS EACHEYE SCH (21:26)
[2017-07-13 03:42] VITALS: RESP 18
[2017-07-13 04:56] LABS: % IMMATURE GRANULYOCYTES 0.8 % (0.0-1.1); ABSOLUTE IMMATURE GRANULOCYTES 0.05 10^3/uL (0.00-0.10); ADD DIFF? NO; ADD MORPH? NO; ADD SCAN? NO; ATYPICAL LYMPHOCYTE FLAG 10 (0-99); FRAGMENT RBC FLAG 0 (0-99); HEMATOCRIT 26.4 % (40.0-51.0); HEMOGLOBIN 8.8 g/dL (13.7-17.5); LEFT SHIFT FLG 0 (0-99); LIPEMIA HEMOLYSIS FLAG 80 (0-99); MEAN CELL HEMOGLOBIN 28.1 pg (27.9-34.1); MEAN CELL HEMOGLOBIN CONCENTR. 33.3 g/dL (32.4-36.7); MEAN CELL VOLUME 84.3 fL (81.5-99.8); MEAN PLATELET VOLUME 10.6 fL (8.7-11.7); PLATELET CLUMPS FLAG 0 (0-99); PLATELET COUNT 97 10^3/uL (150-400); RED BLOOD CELL COUNT 3.13 10^6/uL (4.40-6.38); RED CELL DISTRIBUTION WIDTH 15.4 % (11.5-15.2)
[2017-07-13 05:09] LABS: ANION GAP 7 mEq/L (8-16); CALCIUM 8.9 mg/dL (8.5-10.4); CARBON DIOXIDE 24 mEq/l (22-31); CHLORIDE 104 mEq/L (97-110); CREATININE 1.2 mg/dL (0.7-1.3); GLOMERULAR FILTRATION RATE 58; GLUCOSE 103 mg/dL (70-100); POTASSIUM 3.4 mEq/L (3.5-5.2); SODIUM 135 mEq/L (134-144)
[2017-07-13] MEDS: TAMSULOSIN HCL 0.4 MG CAP PO SCH (08:33)
[2017-07-13] MEDS: PANTOPRAZOLE SODIUM 40 MG TAB PO SCH (08:33)
[2017-07-13 09:10] VITALS: BP 142/81; TEMP 97.7; O2SAT 94
--- NOTE | 2017-07-13 10:54 | ASMTCMCOM ---
CM Note CM Note Notes: Chart reviewed. Met with pt to review d/c poc. Patient insists he does NOT want [facility] services. Discussed with therapist who will work with patient this am. He is appropriate in his responses. Per therapy a little stronger today but would still benefit from therapy. Patient still refusing HHC, He gave me permission to speak with . I called and spoke to her and she knows this is his wish. I encouraged her that if once home she needed help it would still be an option for them to aquire [facility], CM available to follow if needs arise. Date Signed: 07/13/2017 10:53 AM Electronically Signed By:Rani Montano RN
--- NOTE | 2017-07-13 12:33 | SOAPPROG ---
DELFINA Progress Note Assessment/Plan: Assessment: UGIB form MWT no e/o rebleeding P/ PPI for 8-12 weeks Restart anticoagulation per PCP Will sign off for now Subjective: CC hematemesis doing well no e/o rebleeding Objective: Vital Signs Temp Pulse Resp BP Pulse Ox 36.5 C 103 H 18 142/81 H 94 07/13/17 08:00 07/13/17 08:00 07/13/17 08:00 07/13/17 08:00 07/13/17 08:00 Laboratory Results 07/13/17 04:40 07/13/17 04:40 07/12/17 07/13/17 07/14/17 05:59 05:59 05:59 Intake Total 600 125 Output Total 1125 Balance -525 125 PT 14.9 SEC (12.0-15.0) D 07/09/17 05:05 INR 1.17 (0.83-1.16) H 07/09/17 05:05 Physical Exam - Physical Exam General Appearance: alert, no apparent distress Respiratory: lungs clear Cardiac/Chest: regular rate, rhythm Abdomen: non-tender, soft ICD10 Worksheet Patient Problems: Problems Problem Status Onset Over-anticoagulated Acute Upper GI bleed Acute
[2017-07-13] MEDS ORDERED: NS 1,000 ML IV ONE (13:53)
[2017-07-13 14:46] VITALS: PULSE 95
--- NOTE | 2017-07-13 18:52 | GDS ---
[f rep st] DISCHARGE SUMMARY ALL DIAGNOSES: 1. Upper gastrointestinal bleed due to Mei-Unger tear. 2. Acute blood loss anemia status post 3 units of packed red blood cells. 3. Cough. 4. Tachycardia. 5. Thrombocytopenia. 6. History of a pulmonary embolism 3 years ago. 7. Acute kidney injury. 8. Hypotension. 9. Urinary retention. 10. Alcohol use. HOSPITAL COURSE BY PROBLEM: 1. Upper GI bleed: Upper endoscopy showed Mei-Unger tear. This was clipped. At the time, his INR was supratherapeutic on warfarin. Was 4.6. This was reversed. He will be discharged on a b.i.d . PPI for 8-12 weeks. I instructed him not to take any Aleve. I am holding his anticoagulation on di scharge. 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 His PCP had recommended lifelong anticoagulation. I have spoken with his PCP's partner, Dr. Bailey, who could not find any clear reason why he should be on li felong anticoagulation. Because of this, and the recent bleed, I am recommending that he hold it for now and follow up with Dr. Byrnes, his PCP. I have discussed this all at length with the patient. 2. Acute blood loss anemia due to the above: He received 2 units of packed red blood cells. 3. History of PE 5 years ago: As above. 4. Hypotension: He does have a history of hypertension. I am holding his quinapril on discharge. I suspect that he will need to restart that soon. 5. Urinary retention: He transiently needed a Thornton. This has been discontinued. He has been star beata on Flomax. Follow up with PCP or Urology. 6. Tachycardia: This was somewhat persistent until the day of discharge. His heart rate has improv ed with 1 L of normal saline on the day of discharge. Because of this, I think a PE is much less lik sanya than hypovolemia. I have recommended that he stay well hydrated. BILLING: I spent more than 30 minutes on the day of discharge coordinating care. /[id number]/MODL
== END 2017-07-13 16:39 | disposition home or self-care (01) | DRG 369 ==
LOC: EDUNIT# → F2N 20:41 → F3E 07-12 15:51
PROVIDERS: ADMIT Internal Medicine; ATTEND Student in an Organized Health Care Education/Training Program
PROC: 0W3P8ZZ Control Bleeding in Gastrointestinal Tract, Via Natural or Artificial Opening Endoscopic (ICD-10-PCS; principal; 2017-07-09 09:00)
PROC: 30233N1 Transfusion of Nonautologous Red Blood Cells into Peripheral Vein, Percutaneous Approach (ICD-10-PCS; 2017-07-10)
DX: K22.6 Gastro-esophageal laceration-hemorrhage syndrome (principal); D62 Acute posthemorrhagic anemia; N17.9 Acute kidney failure, unspecified; R05 Cough; R00.0 Tachycardia, unspecified; D69.6 Thrombocytopenia, unspecified; I95.9 Hypotension, unspecified; R33.9 Retention of urine, unspecified; I12.9 Hypertensive chronic kidney disease with stage 1 through stage 4 chronic kidney disease, or unspecified chronic kidney disease; I48.0 Paroxysmal atrial fibrillation; Z86.711 Personal history of pulmonary embolism; Z79.01 Long term (current) use of anticoagulants
CPT/HCPCS: 82947-QW; 92610-GN; 96365; 97116-GP; 97161-GP; 97165-GO; 97530-GP; 97535-GO; C9132; G8978-GP-CJ; G8979-GP-CI; G8987-GO-CI; G8988-GO-CI; G8996-GN-CI; G8997-GN-CH; J0171; J2370; J2704; J3010; J3430; P9016